=== PATIENT | male | born 1970 | race American Indian/Alaskan Native ===

== ENCOUNTER 2020-08-06 18:46 | Emergency (ER) | payer SELFPAY ==
[2020-08-06] MEDS ORDERED: SODIUM CHLORIDE 0.9% 1000 ML 0 ML ONE (22:34)
== END 2020-08-06 22:00 | disposition left against medical advice (07) ==
LOC: ED 18:46
DX: M54.89 Other dorsalgia (principal); Z53.21 Procedure and treatment not carried out due to patient leaving prior to being seen by health care provider
CPT/HCPCS: J7030